=== PATIENT | male | born 1990 | race African-American/Black ===

== ENCOUNTER 2019-06-02 09:05 | Observation (INO) ==
[2019-06-02 09:44] LABS: BASO# 0.03 X1000 (0.0-0.2); BASO% 0.5 % (0.0-0.8); EOS# 0.05 X1000 (0.0-0.7); EOS% 0.9 % (0.0-10.0); HEMATOCRIT 46.1 % (42.0-52.0); HEMOGLOBIN 14.8 g/dL (14.0-18.0); IMM GRAN# 0.01 X1000 (0.0-0.04); IMM GRAN% 0.2 % (0.0-0.5); LYMPH# 1.38 X1000 (1.2-3.4); LYMPH% 23.7 % (20.5-51.1); MCH 25.9 PG (27-31); MCHC 32.1 g/dL (33-37); MCV 80.7 FL (81-99); MONO# 0.43 X1000 (0.11-0.59); MONO% 7.4 % (1.7-9.3); MPV 12.7 FL (7.4-10.4); NEUT# 3.92 X1000 (1.4-6.5); NEUT% 67.3 % (42.2-75.2); PLT 203 X1000 (130-400); RBC 5.71 XMIL (4.7-6.1); RDW 13.2 % (11.5-14.5); WBC 5.82 X1000 (4.8-10.8)
[2019-06-02 10:04] LABS: AGAP 11; ALBUMIN 4.7 g/dL (3.5-5.0); ALKALINE PHOSPHATASE 74 U/L (32-122); BUN 19 mg/dL (8-22); CALCIUM 9.2 mg/dL (8.8-10.2); CHLORIDE 105 mmol/L (98-107); COSMO 286; ESTIMATED GFR > 60; GLUCOSE 103 mg/dL (70-104); GOT 22 U/L (10-34); GPT 23 U/L (10-44); POTASSIUM 4.2 mmol/L (3.5-5.1); SODIUM 142 mmol/L (136-145); TCO2 26 mmol/L (25-35); TOTAL PROTEIN 7.4 g/dL (6.3-8.3)
--- NOTE | 2019-06-02 10:27 | Diag Imaging Result Doc PS360 ---
EXAM: CT ABD/PELVIS W/IV CONT ONLY HISTORY: pain TECHNIQUE: CT abdomen and pelvis with intravenous contrast COMPARISON: None. FINDINGS: There is a small laceration in the subcutaneous fat above the umbilicus. There is a tiny amount of air in the subcutaneous fat. No intra-abdominal air. No hematoma. No calcified gallstones or adjacent inflammation. Normal liver, spleen, pancreas, and adrenal glands. Normal kidneys. No hydronephrosis. Normal aorta. The appendix has been removed. There is stool in the proximal colon. No bowel obstruction. The urinary bladder is distended and normal. Normal prostate. IMPRESSION: 1.Appendectomy 2.Mild constipation 3.No intra-abdominal injury This exam was performed using automated exposure control, adjustment of mA or kV according to patient size, and/or use of iterative reconstruction technique. Electronically signed by Sunny Bush 06/02/2019 10:25 AM
[2019-06-02] MEDS ORDERED: KEFZOL 1 GM/D5W 1 GM/50 ML IVPB IV ONE (11:12)
[2019-06-02] MEDS ORDERED: NS 1,000 ML IV ONE (11:40)
[2019-06-02] MEDS ORDERED: DIPHTHERIA/TETANUS ADULT IM ONE (12:20)
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
[2019-06-02] MEDS: KEFZOL 2 GM/D5W 2 GM/50 ML IVPB IV SCH (17:12)
[2019-06-03] MEDS: KEFZOL 2 GM/D5W 2 GM/50 ML IVPB IV SCH ×2 (01:21→08:27)
[2019-06-03 07:57] VITALS: BP 141/96
--- NOTE | 2019-06-03 12:34 | GENERAL SURGERY PROGRESS NOTE ---
DATE: 06/03/2019 SUBJECTIVE: Bowel function is normal. No fevers, no tachycardia overnight. Blood pressure 141/96. His abdomen is soft, nontender. Midline laceration is clean with no purulence. ASSESSMENT AND PLAN: This is a 29-year-old gentleman with a superficial [*] injury to his abdominal wall. No evidence of intra-abdominal injury on imaging, and his exam remains benign. He has received tetanus. We have had him on Ancef while here. Will transition him to Keflex for a week, and I will see him in a week to monitor his wound. I have given instructions on wound care, signs and symptoms of wound infection. He will call with any worsening. cc: Stephy Gamble MD
== END 2019-06-03 11:38 | disposition home or self-care (01) ==
LOC: EDIPHOLD 09:05 → P.ED 09:05 → 4N 12:33
PROVIDERS: ADMIT Surgery; ATTEND Surgery